=== PATIENT | male | born 1995 | race Caucasian/White ===

== ENCOUNTER 2016-06-17 18:53 | Emergency (ER) | payer MEDICAID ==
[~2016-06-17] VITALS: Ht 175.3 cm; Wt 59.0 kg
[2016-06-17 19:27] VITALS: BP 114/60
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
--- NOTE | 2016-06-17 21:33 | NUR ---
Patient to bed 05.
--- NOTE | 2016-06-17 21:40 | NUR ---
DISCHARGED BY DR PAVEL GARCÍA. PRESCRIPTION AND AFTERCARE INSTRUCTIONS GIVEN VERBALIZED UNDERSTANDING.
[2016-06-17 21:53] VITALS: BP 121/55
== END 2016-06-17 21:40 | disposition home or self-care (01) ==
LOC: MED 18:55
DX: S02.2XXA Fracture of nasal bones, initial encounter for closed fracture (principal); Y04.2XXA Assault by strike against or bumped into by another person, initial encounter; Y93.89 Activity, other specified; Y92.89 Other specified places as the place of occurrence of the external cause; Y99.8 Other external cause status
CPT/HCPCS: 70486; 99284

== ENCOUNTER 2017-03-12 13:37 | Emergency (ER) | payer SELFPAY ==
[~2017-03-12] VITALS: Ht 177.8 cm; Wt 53.5 kg
[2017-03-12 14:32] VITALS: BP 97/54
--- NOTE | 2017-03-12 14:38 | NUR ---
INFLUENZA AND STREP COLLECTED
[2017-03-12 19:49] VITALS: BP 101/66
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
== END 2017-03-12 19:49 | disposition home or self-care (01) ==
LOC: MED 13:37
DX: J11.1 Influenza due to unidentified influenza virus with other respiratory manifestations (principal)
CPT/HCPCS: 36415; 87081; 87804; 99284